=== PATIENT | male | born 1990 | race Asian ===

== ENCOUNTER 2023-12-25 11:49 | Emergency (ER) | payer SELFPAY ==
[2023-12-25] VITALS (19 sets, daily range): BP systolic 105–133; BP diastolic 58–93; PULSE 59–79; RESP 10–30; TEMP 36.6–36.7; O2SAT 93–100
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
--- NOTE | ~2023-12-25 | XR_ITS ---
Right elbow Technique: AP, oblique, and lateral views were obtained. Clinical History: Post reduction COMPARISON: 12/25/2023 at 1:20 PM Findings: There has been apparent successful interval reduction of the previously noted ulnar humeral dislocation. Radiocapitellar alignment is improved on the lateral view, but there is persistent late ral dislocation versus subluxation of the radial head on the AP projection. Small fracture fragments are present, likely arising from the coronoid process of the ulna. Elbow joint effusion probably pres ent. Impression: Ulnohumeral alignment now appears to be essentially anatomic. There is persistent lateral radial head dislocation versus subluxation on AP projection, and alignmen t on lateral view appears largely satisfactory. Small fracture fragments anteriorly, likely related to fracture the coronoid process of the ulna. Reviewed, dictated and finalized at [facility]. Impression: Ulnohumeral alignment now appears to be essentially anatomic. There is persistent lateral radial head dislocation versus subluxation on AP pr ojection, and alignment on lateral view appears largely satisfactory. Small fracture fragments anteriorly, likely related to fracture the coronoid pr ocess of the ulna.
--- NOTE | ~2023-12-25 | XR_ITS ---
Right elbow Technique: AP and lateral views were obtained. Clinical History: Post reduction COMPARISON: 12/25/2023 at 1:57 PM Findings: Osseous alignment at the elbow now appears essentially anatomic. Ulnohumeral and radiocapit ellar alignments appear satisfactory. Small fracture fragments seen on prior exams are not well seen on the current exam. There is soft tissue swelling about the elbow. Impression: Status post closed reduction, with now essentially anatomic alignment of the ulnohumeral and radiocap itellar articulations. Small fracture fragment seen on prior exam are not well seen on the current exam. Reviewed, dictated and finalized at location . Impression: Status post closed reduction, with now essentially anatomic alignment of the ul nohumeral and radiocapitellar articulations. Small fracture fragment seen on prior exam are not well seen on the current exa m.
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
[2023-12-25] MEDS: ONDANSETRON INJ 4 MG/2 ML VIAL IV PUSH (12:45)
[2023-12-25] MEDS: HYDROmorphone HCL INJ (*CRX) 1 MG/ML SYR 0.5 MG IV PUSH ×2 (12:45→16:19)
[2023-12-25] MEDS: ETOMIDATE 20 MG/10 ML AMPUL (16:52)
--- NOTE | 2023-12-25 17:15 | PC.NURSE ---
1652 10 mg of Ethomidate given IV push per verbal order by EDP for Mod sedation r/t right elbow dislocation.
== END 2023-12-25 19:12 | disposition home or self-care (01) ==
PROVIDERS: Emergency Provider Emergency Medicine
DX: S52.121A Displaced fracture of head of right radius, initial encounter for closed fracture (principal); V18.4XXA Pedal cycle driver injured in noncollision transport accident in traffic accident, initial encounter; Y93.55 Activity, bike riding
CPT/HCPCS: 24605; 70450; 72125; 73070; 73080; 73200; 96374; 96375; 96376; 99285; A4565; J1170; J2405